=== PATIENT | male | born 1985 | race Caucasian/White ===

== ENCOUNTER 2018-10-04 05:40 | Day surgery (SDC) | payer BC ==
[~2018-10-04] VITALS: Ht 180.3 cm; Wt 98.3 kg
[~2018-10-04 05:40] MED LIST: VYVANSE50 MG PO
[2018-10-04 14:15] VITALS: BP 126/84
[2018-10-04 16:46] VITALS: BP 126/84
--- NOTE | 2018-10-05 08:51 | O ---
[address] [address] OPERATIVE REPORT Name: LEBRON VILLALTA Room #: DEP [facility].#: [id number] Admission: 10/04/18 ������������������ Attend Phys: Breezy Pool MD Discharge: 10/04/18 ������������������ Date of : 83 Report #: [id number] THIS REPORT FOR: //name// CC: VAN physician/PCP Breezy Pool DATE OF SERVICE: 10/04/2018 SERVICE: Orthopedics. FACILITY: [place]. SURGEON: Breezy Pool MD BREAKER BOSS: Alexus Villegas NP PREOPERATIVE DIAGNOSES: 1. Right shoulder pain. 2. Right shoulder posterior labral tear. 3. Right shoulder distal clavicle osteolysis. POSTOPERATIVE DIAGNOSES: 1. Right shoulder pain. 2. Right shoulder posterior labral tear. 3. Right shoulder distal clavicle osteolysis. PROCEDURES: 1. Right shoulder arthroscopy with posterior labral repair and capsulorrhaphy. 2. Right shoulder arthroscopic distal clavicle excision. 3. Extensive arthroscopic debridement, right shoulder. COMPLICATIONS: None. DRAINS: None. SPECIMENS: None. ANESTHESIA: General with regional. FINDINGS: 1. 1. Posterior labral repair capsulorrhaphy performed with [employer] Q-fix anchor x 2. 2. 2. Sling immobilization for 4 weeks planned. HISTORY: The patient is a 32-year-old right-hand dominant gentleman with his [address] [address] OPERATIVE REPORT Name: LEBRON VILLALTA Room #: DEP [facility]#: [id number] Admission: 10/04/18 ������������������ Attend Phys: Breezy Pool MD Discharge: 10/04/18 ������������������ Date of : 83 Report #: [id number] history of right shoulder pain that had failed conservative measures including rest, activity modification, therapy, oral medications, all without sufficient relief. He had a series of traumatic injuries including loaded weight lifting injury. He has recreational activities to include multiple sports and weightlifting as well as acrobatics. He had symptoms of posterior instability with posterior labral pathology. He also had acromioclavicular joint symptoms due to distal clavicle osteolysis. We had a discussion about optimal treatment measures after he elected to undergo surgical treatment with a plan for stabilization, labral repair and distal clavicle excision. Risks, benefits, alternatives and indications of surgery were discussed with him in detail. The risks include but not limited to pain, bleeding, infection, injury to nerves or blood vessels, persistent pain despite surgical intervention, failure of any repairs, progression of any preexisting chondral injury, stiffness, need for further surgery as well as complications related to anesthesia, stroke, heart attack, pulmonary complications, thromboembolic disease and . Despite these risks, he wished to proceed. PROCEDURE IN DETAIL: After the right upper extremity was correctly identified in the preoperative holding area as the operative extremity, the patient was taken to the operating room after placement of a single shot regional nerve block and general anesthesia was induced without complication with LMA. He was turned into the lateral decubitus position with right side up and left side down. He was padded appropriately. Prophylactic antibiotics were administered at appropriate time. Right upper extremity was then prepped and draped in a standard sterile fashion and a timeout procedure was performed. A standard posterior viewing portal was established in a typical fashion, followed by a low anterior working portal. A high anterior portal for visualization was then established as well. Shaver was used to perform a thorough debridement of some frayed anterior labral tissue as well as superior labral tissue. The biceps tendon was normal in appearance as was the rotator cuff including supraspinatus, infraspinatus and subscapularis. The inferior and posterior labral tear could be clearly visualized. Scope was placed anterosuperior, and then a posterior instability portal was established in a typical fashion and cannulated. The posterior inferior labral tear was noted to have a flap component where there was a radial tear and it created a parrot-beak type tear proximally and then a small flap tear of the inferior labrum with essentially a knuckle piece of labrum that is presumably a source of some mechanical symptoms. The shaver was used to debride the unstable portion of the labrum and then the chondral labral junction was developed with the elevator and a shaver was used to prepare the labral tissue for repair. First anchor was then placed at the 7 o'clock position with a mattress suture performing a capsulorrhaphy of the posterior inferior band of the glenohumeral ligament. Overall, he was not excessively lax, so he did not need a large capsulorrhaphy, but did need reinforcement of the labral tissue for the repair. First anchor [facility] [address] [place] [address] OPERATIVE REPORT Name: LEBRON VILLALTA Room #: [facility] [id number] Admission: 10/04/18 ������������������ Attend Phys: Breezy Pool MD Discharge: 10/04/18 ������������������ Date of : 83 Report #: [id number] provided a good closure of the inferior capsular volume. The second anchor was then placed more proximally at approximately the 9 o'clock position and a simple suture was placed here to complete the labral repair and capsulorrhaphy. Finally, a tape suture was used to close a cannulated posterior portal and the intraarticular debridement was completed with the shaver. Scope was then placed in the subacromial space. He was noted to have a significant amount of subacromial bursitis, which was resected with the shaver thoroughly. The rotator cuff was normal on the bursal side. The acromioclavicular joint was then exposed arthroscopically allowing visualization of the distal clavicle. The bur was used to perform the arthroscopic distal clavicle excision. He was noted to have pathologic bone, especially on the anterior superior portion of it where the bone was discolored with brownish hue, typical of distal clavicle osteolysis. The abnormal bone was then resected until healthy pink appearing trabeculae were visualized. Care was taken to avoid disruption of the posterior and superior capsule. After the excision was completed, the bony debris was lavaged out of the shoulder. Instruments were removed and the portal sites were closed with sutures. The arm was placed in abduction pillow sling. The patient was awakened from anesthesia and taken to the recovery room in stable condition. No complications and all counts were recorded as correct. ��������������������������������������������� <ELECTRONICALLY SIGNED> ���������������������������������������� By: Breezy Pool MD ��������������������������������������������� 10/05/18 [id number] Breezy Pool MD /nt
== END 2018-10-04 18:40 | disposition home or self-care (01) ==
LOC: TBA 05:40 → OR 05:40 → TBA 05:41 → OR 11:01
DX: S43.491A Other sprain of right shoulder joint, initial encounter (principal); M89.511 Osteolysis, right shoulder; Z98.890 Other specified postprocedural states; X58.XXXA Exposure to other specified factors, initial encounter; Y93.89 Activity, other specified; Y92.89 Other specified places as the place of occurrence of the external cause; Y99.8 Other external cause status
CPT/HCPCS: 50010; 50101; 50172; 50386; 50417; 50935; 50950; 51320; 52001; 52313; 53610; 54170; 55430; 56527; 56617; 57103; 62110; 62900; 64043; 65060; 70005